=== PATIENT | female | born 1985 | race African-American/Black ===

== ENCOUNTER 2017-08-12 23:31 | Emergency (ER) | payer BC ==
[~2017-08-12] VITALS: Ht 170.2 cm; Wt 84.0 kg
[2017-08-12 23:50] VITALS: BP 114/73
== END 2017-08-13 02:00 | disposition left against medical advice (07) ==
LOC: ER 23:31
DX: R06.02 Shortness of breath (principal); R11.10 Vomiting, unspecified; R13.19 Other dysphagia
CPT/HCPCS: 99281